=== PATIENT | female | born 1975 | race Two or more races ===

== ENCOUNTER 2017-07-03 07:23 | Outpatient (CLI) | payer OTHER | END 2017-07-03 07:26 | disposition home or self-care (01) | LOC: SONOGRAMA 07:23 | DX: E04.1 Nontoxic single thyroid nodule (principal) ==

== ENCOUNTER 2018-09-30 17:44 | Emergency (ER) | payer OTHER ==
[~2018-09-30] VITALS: Ht 170.2 cm; Wt 120.2 kg
[2018-09-30] MEDS ORDERED: ATENOLOL50 MG (18:19)
[2018-09-30] MEDS ORDERED: LOSARTAN POTAS100 MG (18:19)
== END 2018-09-30 19:42 | disposition home or self-care (01) ==
LOC: ER 17:44
DX: S00.83XA Contusion of other part of head, initial encounter (principal); S60.212A Contusion of left wrist, initial encounter; S50.12XA Contusion of left forearm, initial encounter; W18.39XA Other fall on same level, initial encounter; Y93.89 Activity, other specified; Y92.69 Other specified industrial and construction area as the place of occurrence of the external cause; Y99.8 Other external cause status

== ENCOUNTER 2019-12-02 08:16 | Outpatient (CLI) | payer OTHER ==
[~2019-12-02 08:16] MED LIST: ATENOLOL50 MG; LOSARTAN POTAS100 MG
== END 2019-12-02 08:26 | disposition home or self-care (01) ==
LOC: EDBD 08:16 → SONOGRAMA 08:16
PROVIDERS: ATTEND Pathology Anatomic Pathology & Clinical Pathology
DX: E04.2 Nontoxic multinodular goiter (principal)

== ENCOUNTER 2020-12-07 08:43 | Outpatient (CLI) | payer OTHER | END 2020-12-07 08:50 | disposition home or self-care (01) | LOC: SONOGRAMA 08:43 | PROVIDERS: ATTEND Pathology Anatomic Pathology & Clinical Pathology | DX: E04.8 Other specified nontoxic goiter (principal) ==

== ENCOUNTER → 2022-08-01 | Emergency (ER) | payer OTHER ==
[~2022-08-01] VITALS: Ht 165.1 cm; Wt 108.9 kg
== END | disposition home or self-care (01) ==
LOC: ER 17:20
DX: M79.604 Pain in right leg (principal)